=== PATIENT | male | born 1950 | race Caucasian/White ===

== ENCOUNTER → 2023-11-16 09:57 | Outpatient (REF) | payer BC, SELFPAY | LOC: RAD 09:57 | PROVIDERS: ATTENDING PHYSICIAN Otolaryngology; FAMILY PHYSICIAN Internal Medicine | DX: H90.A22 Sensorineural hearing loss, unilateral, left ear, with restricted hearing on the contralateral side (principal); H93.A1 Pulsatile tinnitus, right ear | CPT/HCPCS: 70496; Q9967 ==